=== PATIENT | male | born 1935 | race Caucasian/White ===

== ENCOUNTER 2017-03-18 07:07 | Emergency (ER) | payer OTHER ==
[2017-03-18 07:32] LABS: Hematocrit 43.8 % (42.0-52.0); Hemoglobin 14.4 gm/dL (13.5-18.0); Mean Cell Volume 86.9 fl (78-100); Mean Corpuscular Hemoglobin 28.6 pg (27-31); Mean Corpuscular Hgb Conc 32.9 g/dl (32-36); Mean Platelet Volume 9.9 fl (6.0-9.5); Neutrophil # 5.9 K/mm3 (1.3-6.0); Neutrophil % 73.1 % (42-75.0); Platelet Count 260 K/mm3 (150-450); Red Blood Count 5.04 M/mm3 (4.7-6.0)
--- NOTE | 2017-03-18 07:37 | ERNOTE ---
<Rosa Isela Gil - Last Filed: 03/18/17 07:33> Chest Pain/Cardiac HPI Chief Complaint: Palpitations Source: patient Exam Limitations: no limitations Immunizations: IMMUNIZATION HX Immunizations Up to Date Yes History of Influenza Vaccine Yes Hx Pneumococcal Vaccination Yes Allergies/Adverse Reactions: Allergies No Known Allergies Allergy (Verified 03/18/17 07:25) Home Medications: HOME MEDICATIONS Alogliptin Benzoate [Alogliptin] 25 mg PO DAILY 03/18/17 [Last Taken Unknown] Aspirin 81 mg PO DAILY 03/18/17 [Last Taken Unknown] Cholecalciferol (Vitamin D3) [Vitamin D3] 5,000 unit PO DAILY 03/18/17 [Last Taken Unknown] Cyanocobalamin (Vitamin B-12) [Vitamin B12] 1,000 mcg PO DAILY 03/18/17 [Last Taken Unknown] Diltiazem HCl [Cardizem] 120 mg PO DAILY 03/18/17 [Last Taken Unknown] Ezetimibe [Zetia] 10 mg PO DAILY 03/18/17 [Last Taken Unknown] Flecainide Acetate 50 mg PO BID 03/18/17 [Last Taken Unknown] Hydrochlorothiazide [Hydrodiuril] 25 mg PO DAILY 03/18/17 [Last Taken Unknown] Insulin NPH Hum/Reg Insulin Hm [Humulin 70-30] 13 unit SC QPM 03/18/17 [Last Taken Unknown] Insulin NPH Hum/Reg Insulin Hm [Humulin 70-30] 15 unit SC QAM 03/18/17 [Last Taken Unknown] Magnesium Oxide [Mag-Ox 400] 400 mg PO BID #60 tab 03/18/17 [Last Taken Unknown] Melatonin 3 mg PO DAILY 03/18/17 [Last Taken Unknown] Pramipexole Di-HCl [Pramipexole Dihydrochloride] 0.25 mg PO BID 03/18/17 [Last Taken Unknown] Ramipril 10 mg PO DAILY 03/18/17 [Last Taken Unknown] Ubidecarenone [Coq10] 300 mg PO DAILY 03/18/17 [Last Taken Unknown] metFORMIN HCL [Metformin HCl ER] 1,000 mg PO BID 03/18/17 [Last Taken Unknown] Narrative: This patient is an 81-year-old diabetic male who presents to the emergency room for 2 week history of shortness of breath and irregular heartbeat. Does have a history of irregular heartbeat as told by his ore grader however they have mentioned that he does not have atrial fibrillation. Denies any cough congestion fever or chills intensive become worse today and that's why he presented to the emergency room Review of Systems - Review of Systems Constitutional: Present: no symptoms reported EYE: Present: no symptoms reported ENT: Present: no symptoms reported Respiratory: Present: shortness of breath Cardiology: Present: See HPI Gastrointestinal/Abdominal: Present: no symptoms reported Genitourinary: Present: no symptoms reported Musculoskeletal: Present: no symptoms reported Skin: Present: no symptoms reported - Patient's Past Medical History Patient History - Medical: Diabetes Type 2 Patient History - Cardiac/Respiratory: Hypertension, Hyperlipidemia, Other Patient History - Cancer: Melanoma Patient History - Surgical Procedures: Cancer Surgery, Other Patient History - Other: None - Social History Living Situations: home Abuse History: No History of abuse Psych History: No pertinent hx Smoking Status: Never smoker Alcohol Use: none Drug Use: none - Immunizations Immunizations Up to Date: Yes Hx Pneumococcal Vaccination: Yes History of Influenza Vaccine: Yes Physical Exam - Physical Exam General Appearance: Present: wd/wn, alert, no apparent distress Ears, Nose, Throat: Present: normal ENT inspection Neck: Present: normal inspection Respiratory: Present: no respiratory distress, normal breath sounds, no accessory muscle use, chest nontender, lungs clear Cardiovascular/Chest: Present: regular rate, rhythm, no murmur, normal peripheral pulses Extremity Exam: Present: normal inspection, normal range of motion Neurological Exam: Present: alert, oriented, normal mood/affect, no motor/ sensory deficits ED Progress - Vital Signs Patient's Vital Signs:: I have reviewed the patient's vital signs. Vital Signs: Vital Signs 03/18/17 03/18/17 07:07 07:33 Temperature 36.6 C Pulse Rate 70 90 Respiratory 18 11 L Rate Blood Pressure 137/65 123/67 O2 Sat by Pulse 100 100 Oximetry - EKG EKG Comments: AG with [place] by Dr. Luke and also Dr. Dunn at [facility] this patient does have PVCs and he is also got multifocal atrial contractions are no atrial fibrillation is noted no pauses are noted. - Progress/Reassessment Chief Complaint: Palpitations - Transfer of Care Physician Sign Out: Rosa Isela Gil Receiving Physician: Home Blandon Pending Results: Labs, Physician/consult arrival, X-ray results Departure - Departure Clinical Impression: Shortness of breath, Heart palpitations Disposition: Home self-care Condition: Good Instructions: Palpitations, [id number] Prescriptions: Magnesium Oxide [Mag-Ox 400] 400 mg PO BID #60 tab <Home Blandon - Last Filed: 03/18/17 08:27> Chest Pain/Cardiac HPI Immunizations: IMMUNIZATION HX Immunizations Up to Date Yes History of Influenza Vaccine Yes Hx Pneumococcal Vaccination Yes ED Progress - Results and Orders Patient's Lab Results:: I have reviewed the patient's lab results. - Vital Signs Vital Signs: Vital Signs 03/18/17 03/18/17 07:07 07:33 Temperature 36.6 C Pulse Rate 70 90 Respiratory 18 11 L Rate Blood Pressure 137/65 123/67 O2 Sat by Pulse 100 100 Oximetry - X-Ray X-Ray #1 X-Ray: chest Interpretation: Interp. by me Plan - Plan Plan: Unclear etiology for the palpitations and intermittent shortness of breath. He has had a full cardiac workup in [place] and they too are struggling to understand the nature of these intermittent episodes. As the patient appears to be in intermittent bigeminal rhythm will try increasing his magnesium to closer to the upper range of normal and he will follow up with his family physician and ore grader in [place] when he returns home. Patient is symptom free and discharged in stable condition
[2017-03-18 08:04] LABS: ALT 15 U/L (19-67); AST 12 U/L (0-48); Albumin * 3.2 gm/dl (3.4-5.0); Alkaline Phosphatase * 78 U/L (50-170); Anion Gap 13.2 mmol/L (6.8-13.8); BUN/Creatinine Ratio 14.3 (9.0-21.6); Bilirubin, Total 0.4 mg/dL (0.0-1.1); Blood Urea Nitrogen 18 mg/dL (6-23); CKMB 2.2 ng/mL (0.0-9.0); Ca. Corrected For Albumin 8.9 mg/dL (8.4-10.2); Calcium * 8.6 mg/dL (7.9-10.9); Carbon Dioxide 27.8 mmol/L (24-32.6); Chloride 102 mmol/L (97-106); Glucose * 200 mg/dL (70-110); Sodium 139 mmol/L (132-142); Total Protein 6.8 gm/dL (6.2-8.2)
[2017-03-18 08:07] LABS: Troponin I Less than 0.017 ng/ml (0.00-0.10)
[2017-03-18 08:59] VITALS: BP 121/67
== END 2017-03-18 08:48 | disposition home or self-care (01) ==
LOC: ER 07:07
DX: R00.2 Palpitations (principal); R06.02 Shortness of breath; I49.3 Ventricular premature depolarization